=== PATIENT | female | born 1955 | race Caucasian/White ===

== ENCOUNTER → 2019-06-06 12:54 | Outpatient (CLI) | payer OTHER, SELFPAY ==
--- NOTE | ~2019-06-06 | MR_ITS ---
EXAMINATION: MR lumbar spine wo/w con EXAM DATE: 06/06/2019 14:00 INDICATION: Low back pain, right leg pain since February 2018. Scoliosis. TECHNIQUE: Multi-sequential, multiplanar MR images of the lumbar spine were obtained without contrast . Sagittal T1, T2, T2 fat saturation images. Axial T2 weighted images. Axial T1 weighted sequence. Patient was then injected with 14 mL Multihance intravenous contrast and reimaged. Postcontrast axi al and sagittal T1-weighted fat saturation sequences were obtained. There is no prior study for pearl rodríguez. FINDINGS: There is severe thoracic dextroscoliosis, thoracolumbar levoscoliosis with loss of the L2-4 vertebral body heights on there right sides, concave side of the scoliosis. Only minimal subluxation s in the AP dimension. The conus medullaris terminates at the L1/2 level and has normal signal intens ity and morphology. 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 There are some dilated l ower thoracic nerve root sleeves. There is horizontally oriented left kidney. Paraspinal soft tissue is unremarkable. There are no focal marrow signal abnormalities suspicious for malignancy or acute fr acture. There is moderate to severe disc disease at L2-3, moderate at T12-L1 and L1-2, mild at the ot her lower thoracic and lower lumbar levels. There are no areas of abnormal enhancement on the post co ntrast images. Level by level evaluation: T12-L1: There is a mild diffuse disc bulge. Facet arthropathy: Mild. Neural foraminal stenosis: No stenosis. Central canal stenosis: No stenosis. L1-L2: There is a mild to moderate diffuse disc bulge. Facet arthropathy: Mild to moderate. Neural foraminal stenosis: Probably mild left. Central canal stenosis: Mild. L2-L3: There is a mild to moderate diffuse disc bulge. Facet arthropathy: Mild to moderate. Neural foraminal stenosis: No stenosis. Central canal stenosis: Mild. L3-L4: There is a moderate diffuse disc bulge. Facet arthropathy: Moderate . Ligamentum flavum enlargement. Neural foraminal stenosis: Mild to moderate right, mild left. Central canal stenosis: Moderate. L4-L5: There is a moderate diffuse disc bulge. Facet arthropathy: Moderate. Neural foraminal stenosis: Mild to moderate left, mild right. Central canal stenosis: Moderate. L5-S1: Disc does not extend beyond the endplate margin. Facet arthropathy: Mild. Neural foraminal stenosis: No stenosis. Central canal stenosis: No stenosis. IMPRESSION: 1. Severe thoracolumbar scoliosis. 2. Up to moderate spondylosis as detailed above. Reviewed, dictated and finalized at location A. 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
[2019-06-06 13:25] LABS: Estimated Glomerular Filt Rate > 60
== END ==
PROVIDERS: Visit Provider Physician Assistant Medical
DX: M41.9 Scoliosis, unspecified (principal); R93.7 Abnormal findings on diagnostic imaging of other parts of musculoskeletal system; M47.896 Other spondylosis, lumbar region
CPT/HCPCS: 36415; 72158; A9577

== ENCOUNTER → 2019-12-26 14:48 | Outpatient (CLI) | payer OTHER, SELFPAY ==
--- NOTE | ~2019-12-26 | MM_ITS ---
EXAMINATION: MM screening [facility] BI w bang HISTORY: Screening mammogram TECHNIQUE: Craniocaudal and mediolateral oblique 3-D tomosynthesis images were obtained and synthetic 2-D images were generated. Rotated right lateral cc view. CAD analysis was submitted and interpreted . COMPARISON: 08/27/2018, 07/23/2017, 06/11/2016 bilateral digital screening mammogram examinations BREAST PARENCHYMAL COMPOSITION: The breasts are extremely dense, which lowers the sensitivity of mamm ography. FINDINGS: There is no evidence of suspicious mass, calcification, or architectural distortion to sugg est malignancy in either breast. There has been no suspicious interval change. IMPRESSION: 1. No mammographic evidence of malignancy. 2. Recommend routine screening mammography in one year. BI-RADS Category 1: Negative Reviewed, dictated and finalized at location A.
== END ==
PROVIDERS: PCP Internal Medicine; Visit Provider Obstetrics & Gynecology Gynecology
DX: Z12.31 Encounter for screening mammogram for malignant neoplasm of breast (principal)
CPT/HCPCS: 77063; 77067

== ENCOUNTER → 2021-01-15 13:11 | Outpatient (CLI) | payer MEDICARE, SELFPAY ==
--- NOTE | ~2021-01-15 | MM_ITS ---
EXAMINATION: MM screening [facility] BI w bang HISTORY: Screening TECHNIQUE: Craniocaudal and mediolateral oblique 3-D tomosynthesis images were obtained and synthetic 2-D images were generated. CAD analysis was submitted and interpreted. COMPARISON: Comparison to multiple prior studies sequentially, with oldest reviewed study dated 05/25. BREAST PARENCHYMAL COMPOSITION: The breasts are extremely dense, which lowers the sensitivity of mamm ography. FINDINGS: There is no evidence of suspicious mass, calcification, or architectural distortion to sugg est malignancy in either breast. There has been no suspicious interval change. IMPRESSION: 1. No mammographic evidence of malignancy. 2. Recommend routine screening mammography in one year. BI-RADS Category 1: Negative Reviewed, dictated and finalized at location A.
== END ==
PROVIDERS: Visit Provider Obstetrics & Gynecology Gynecology
DX: Z12.31 Encounter for screening mammogram for malignant neoplasm of breast (principal)
CPT/HCPCS: 77063; 77067

== ENCOUNTER → 2022-06-11 13:21 | Outpatient (CLI) | payer MEDICARE, SELFPAY ==
--- NOTE | ~2022-06-11 | MM_ITS ---
EXAMINATION: MM screening [facility] BI w bang HISTORY: Screening mammogram TECHNIQUE: Craniocaudal and mediolateral oblique 3-D tomosynthesis images were obtained and synthetic 2-D images were generated. CAD analysis was submitted and interpreted. COMPARISON: 01/15/2021, 12/26/2019, 08/27/2018 BREAST PARENCHYMAL COMPOSITION: The breasts are extremely dense, which lowers the sensitivity of mamm ography. FINDINGS: No suspicious mass, calcification, or architectural distortion are identified in either andrade ast to suggest malignancy. There has been no suspicious interval change. IMPRESSION: 1. No mammographic evidence of malignancy. 2. Recommend routine screening mammography in one year. BI-RADS Category 1: Negative Reviewed, dictated and finalized at location A. 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
--- NOTE | ~2022-06-11 | DEXA_ITS ---
Bone Density Report Name: NOREEN REZA Age: 66 Sex: Female Ethnicity: White Date of : 1955 Indication: postmenopausal; screening for osteoporosis; height loss; Referring Provider: BAILEE DAWSON Study: Bone densitometry was performed. Exam Date: June 11, 2022 Accession number: [id number] Bone Density: Region BMD T-score Z-score Classification AP Spine (L1, L2) 0.967 -0.1 1.8 Normal Femoral Neck (Left) 0.704 -1.3 0.4 Osteopenia Total Hip (Left) 0.882 -0.5 0.9 Normal Femoral Neck (Right) 0.706 -1.3 0.4 Osteopenia Total Hip (Right) 0.949 0.1 1.5 Normal Total Hip Mean 0.916 -0.2 1.2 Normal World Health Organization criteria for BMD impression classify patients as: Normal (T-score at or above -1.0), Osteopenia (T-score between -1.0 and -2.5), or Osteoporosis (T-score at or below -2.5). 10-year Fracture Risk(1): Major Osteoporotic Fracture 9.3% Hip Fracture 1.1% Reported Risk Factors: [place] (), Neck BMD=0.706, BMI=26.4 (1) FRAX(R) Version 3.08. Fracture probability calculated for an untreated patient. Fracture probability may be lower if the patient has received treatment. Previous Exams: Region Exam Age BMD T-score BMD Change BMD Change Date g/cm2 vs Baseline vs Previous AP Spine(L1, L2) 06/11/2022 66 0.967 -0.1 -0.039* -0.010 08/27/2018 62 0.976 0.0 -0.029* -0.003 05/25/2015 59 0.979 0.0 -0.026* -0.048* 02/11/2012 56 1.027 0.4 0.021 0.046* 02/18/2009 53 0.981 0.0 -0.025* -0.025* 11/13/2005 49 1.006 0.2 Total Hip(Left) 06/11/2022 66 0.882 -0.5 -0.082* -0.030* 08/27/2018 62 0.911 -0.3 -0.053* -0.040* 05/25/2015 59 0.951 0.1 -0.013 0.001 02/11/2012 56 0.950 0.1 -0.014 -0.012 02/18/2009 53 0.962 0.2 -0.002 -0.002 11/13/2005 49 0.964 0.2 Total Hip(Right) 06/11/2022 66 0.949 0.1 -0.075* -0.034* 08/27/2018 62 0.983 0.3 -0.041* -0.032* 05/25/2015 59 1.015 0.6 -0.009 0.030* 02/11/2012 56 0.985 0.3 -0.039* 0.040* 02/18/2009 53 0.944 0.0 -0.080* -0.080* 11/13/2005 49 1.024 0.7 *Denotes significance at 95% confidence level, LSC for AP Spine = 0.022 g/cm2, LSC for Total Hip = 0.027 g/cm2 Clinical Information Provided by Patient:
== END ==
PROVIDERS: PCP Obstetrics & Gynecology Gynecology; Visit Provider Obstetrics & Gynecology Gynecology
DX: Z12.31 Encounter for screening mammogram for malignant neoplasm of breast (principal); Z78.0 Asymptomatic menopausal state; M85.852 Other specified disorders of bone density and structure, left thigh; M85.851 Other specified disorders of bone density and structure, right thigh
CPT/HCPCS: 77063; 77067; 77080

== ENCOUNTER 2022-09-09 09:37 | Outpatient (CLI) | payer MEDICARE, SELFPAY ==
[2022-09-09 10:43] LABS: Anion Gap 2 mmol/L (8-16); Blood Urea Nitrogen 15 mg/dL (7-17); Calcium 8.4 mg/dL (8.4-10.2); Carbon Dioxide 32 mmol/L (22-30); Chloride 103 mmol/L (98-107); Estimated Glomerular Filt Rate > 60; Glucose 77 mg/dL (65-110); Potassium 3.6 mmol/L (3.4-5.0); Sodium 137 mmol/L (137-145)
== END 2022-09-09 09:38 | disposition home or self-care (01) ==
LOC: ANHSURGERY 09:43
PROVIDERS: Anesthesiology; PCP Physician Assistant Medical; Visit Provider Obstetrics & Gynecology Gynecology
DX: R60.9 Edema, unspecified (principal); Z01.818 Encounter for other preprocedural examination
CPT/HCPCS: 36415; 80048

== ENCOUNTER 2022-09-14 00:56 | Day surgery (SDC) | payer MEDICARE, SELFPAY ==
--- NOTE | 2022-09-03 14:58 | PC.NURSE ---
Report to the Outpatient Waiting Room, entrance under the green pavilion located off [facility], at time __1115 on date 09/14/22__. Planned Procedure Time: ___1315 . Time changes happen often and if your time is changed the preop area will call you the afternoon before. - You and your visitor will be asked to self-screen and do not enter if you have any COVID symptoms. - A mask is optional within the hospital at this time. Patients may have clear liquids (water, carbonated beverages, clear teas, apple juice) until 3 hours prior to surgery with a maximum of 20 ounces. - No food from midnight until time of surgery - Infants may have breast milk until 4 hours before surgery, infant formula 6 hours prior to surgery. - Children will be allowed to drink immediately following surgery. If applicable, please bring a bottle or sippy cup to assist with drinking. Juice, water, soda, and popsicles are readily available. For infants on formula, please bring formula the day of surgery. Pacifiers are allowed. Take the following medications with a SIP of water the morning of surgery: ____SERTRALINE DO NOT STOP ANY OF YOUR OTHER PRESCRIPTION MEDICATIONS PRIOR TO SURGERY ?EXCEPT THE FOLLOWING Medications to discontinue per physician ____ALL VITAMINS/SUPPLEMENTS 3 DAYS PRE OP.LAST DOSE 09/10/22 Please no make-up, nail kazakh, hairspray, perfume, deodorant, or body powder the day of surgery. No jewelry (including any body piercings) or valuables the day of surgery, leave them at home. Please take a shower or bath the night before, or the morning of, surgery with an antibacterial soap. Wear comfortable, loose fitting clothing. Children are encouraged to wear pajamas. - Jewelry must be removed prior to entering the operating room. Rings and piercings that are not removed may be cut off. - The hospital will not accept responsibility for valuables. - Please leave all valuables, including medications, at home the day of surgery. If you are going home after surgery, a licensed driver medic must drive you home. - NO public transportation without another adult if you receive anesthesia. - We recommend that an adult stay with you for 24 hours following discharge. - We also recommend that you do not drive, make important decision, drink alcoholic beverages, or take any drugs that were not prescribed by your health care provider for at least 24 hours after your discharge time. Follow any additional instructions given to you from your surgeon. If you or anyone in your household have experienced Covid symptoms in the past week, please notify your surgeon or the nurse liaison at the phone number below for possible testing. Telephone instructions given to ___PATIENT and asked if any additional questions and then verbalized understanding. Patient advised to call surgeon office or pre surgery nurse liaison [phone] if any additional questions.
[2022-09-03 15:09] VITALS: BMI 26.2
--- NOTE | 2022-09-14 09:23 | WPDHPUPDATE1 ---
History and Physical Update Update Date/Time: 09/14/22 09:23 History and Physical has been reviewed, including an updated exam of the patient. There are NO changes in the patient's condition. Risks, benefits, and alternatives have been discussed and questions answered. Patient agrees to proceed with procedure.
--- NOTE | 2022-09-14 09:23 | PM.HPGS ---
History of Present Illness History of Present Illness Consent: Risks, benefits, and alternatives have been discussed and questions answered. Patient agrees to proceed with procedure. Chief complaint: post menapausal bleeding Narrative: Maryuri Whitfield is a 66 year old female With postmenopausal bleeding. Patient has a history of polyps on several prior hysteroscopies. It was recommended to proceed with D&C hysteroscopy. Risks of infection, bleeding, perforation, possible pathology are reviewed. Patient voices understanding and agrees to proceed. Review of Systems Review of Systems: not repeated day of surgery; patient states no changes in status [facility] Past Medical History Medical History (Updated 09/14/22 @ 09:42 by Shaylee Webb MD) Allergic rhinitis Anxiety Dyslipidemia HTN (hypertension) Iron deficiency anemia Murmur, cardiac aortic calcification, last echo 08/07/21 GUANACO (obstructive sleep apnea) Thoracic scoliosis Vitamin D deficiency Surgical History Surgical History (Updated 09/14/22 @ 09:28 by Shaylee Webb MD) History of hysteroscopy 2004, 2006, 2008, 2015 all with polyps History of laparoscopy x2 for infertility; endometriosis diagnosed Family History Family History Mother Colon cancer Father Lung cancer Social History Social History (Updated 08/27/22 @ 11:22 by Jeni Kamara MA) Smoking status: Never smoker Alcohol intake: never Substance use: never Lack of Transportation: No Lack of Food: Never True Current Housing: I Have Housing Concerned About Future Housing: No Difficulty Paying Gas/Electric Bills: No Difficulty Paying for Meds: No Currently Unemployed: No Education: High School Diploma/GED Difficulty w/ Childcare or Family Care: No Living arrangements: with family Occupation/Education: retired Gender identity (if verbalized by the patient): Female Spiritual care concerns: No Meds Home Medications and Allergies Home Medications Medication Instructions Recorded Confirmed Type ascorbate calcium-bioflavonoid ER 1 tablet PO DAILY 02/05/22 09/03/22 History 1,000 mg-200 mg tab,extended release biotin 4,000 mcg BYMOUTH DAILY 02/05/22 09/03/22 History cholecalciferol (vitamin D3) 50 50 mcg PO DAILY 02/05/22 09/03/22 History mcg (2,000 unit) capsule estradiol 1 mg tablet 1 mg PO DAILY 02/05/22 09/03/22 History fexofenadine 180 mg tablet 180 mg PO DAILY 02/05/22 09/03/22 History (Yaima Allergy) fluticasone propionate 50 1 spray intranasal DAILY 02/05/22 09/03/22 History mcg/actuation nasal spray,suspension olopatadine 0.7 % eye drops 1 drp EACH EYE DAILY 02/05/22 09/03/22 History (Pataday Once Daily Relief) progesterone micronized 200 mg 200 mg PO QHS 02/05/22 09/03/22 History capsule (Prometrium) vitamin B12 500 mcg-folic acid 400 1 tablet PO DAILY 02/05/22 09/03/22 History mcg tablet sertraline 100 mg tablet 150 mg PO DAILY 05/08/22 09/03/22 History hydrochlorothiazide 25 mg tablet 25 mg PO DAILY #90 tabs 06/26/22 09/03/22 Rx famotidine 20 mg tablet 20 mg PO DAILY 09/03/22 09/03/22 History multivitamin 1 tablet PO DAILY 09/03/22 09/03/22 History Allergies Allergy/AdvReac Type Severity Reaction Status Date / Time amoxicillin [From Augmentin] AdvReac Other Verified 09/03/22 14:46 cefdinir [From Omnicef] AdvReac GI upset Verified 09/03/22 14:46 and diarrhea clavulanic acid AdvReac Other Verified 09/03/22 14:46 [From Augmentin] methylprednisolone AdvReac jitteriness Verified 09/03/22 14:46 [From Medrol] montelukast [From Singulair] AdvReac Jittery Verified 09/03/22 14:46 moxifloxacin [From Avelox] AdvReac dizziness Verified 09/03/22 14:46 Exam Const: General: healthy appearing and alert Orientation/consciousness: patient oriented x3 Resp: Effort & Inspection: normal respiratory effort GI: GI P
[2022-09-14 11:50] VITALS: BP 120/64; PULSE 70; RESP 16; TEMP 36.3; O2SAT 99
[2022-09-14] MEDS: LACTATED RINGERS 1,000 ML 30 ML IV CONT ×2 (12:05→14:10)
[2022-09-14] MEDS: ACETAMINOPHEN 500 MG TABLET 1000 MG PO (12:05)
--- NOTE | 2022-09-14 12:18 | WPDANESEPPF ---
Anes - Initial Pre Proc Eval Procedure: Operation Date: 09/14/22 13:15 Proposed Procedures p Hysteroscopy Dilation and Curettage - Shaylee Webb MD Date/Time: 09/14/22 12:18 Surgeon: Shaylee Webb MD Pre Op Diagnosis: post menapausal bleeding Patient Data Age: 66 Gender: F Height: 1.63 m Weight: 70 kg Last Vital Signs Temp 36.3 C L 09/14/22 11:50 Pulse 70 09/14/22 11:50 Resp 16 09/14/22 11:50 BP 120/64 09/14/22 11:50 Pulse Ox 99 09/14/22 11:50 O2 Del Method Room Air 09/14/22 11:50 Allergies Allergy/AdvReac Type Severity Reaction Status Date / Time cefdinir [From Omnicef] AdvReac GI upset Verified 09/03/22 14:46 and diarrhea clavulanic acid AdvReac Other Verified 09/03/22 14:46 [From Augmentin] methylprednisolone AdvReac jitteriness Verified 09/03/22 14:46 [From Medrol] montelukast [From Singulair] AdvReac Jittery Verified 09/03/22 14:46 moxifloxacin [From Avelox] AdvReac dizziness Verified 09/03/22 14:46 Home Medications Medication Instructions Recorded Confirmed Type ascorbate calcium-bioflavonoid ER 1 tablet PO DAILY 02/05/22 09/03/22 History 1,000 mg-200 mg tab,extended release biotin 4,000 mcg BYMOUTH DAILY 02/05/22 09/03/22 History cholecalciferol (vitamin D3) 50 50 mcg PO DAILY 02/05/22 09/03/22 History mcg (2,000 unit) capsule estradiol 1 mg tablet 1 mg PO DAILY 02/05/22 09/03/22 History fexofenadine 180 mg tablet 180 mg PO DAILY 02/05/22 09/03/22 History (Yaima Allergy) fluticasone propionate 50 1 spray intranasal DAILY 02/05/22 09/03/22 History mcg/actuation nasal spray,suspension olopatadine 0.7 % eye drops 1 drp EACH EYE DAILY 02/05/22 09/03/22 History (Pataday Once Daily Relief) progesterone micronized 200 mg 200 mg PO QHS 02/05/22 09/03/22 History capsule (Prometrium) vitamin B12 500 mcg-folic acid 400 1 tablet PO DAILY 02/05/22 09/03/22 History mcg tablet sertraline 100 mg tablet 150 mg PO DAILY 05/08/22 09/14/22 History hydrochlorothiazide 25 mg tablet 25 mg PO DAILY #90 tabs 06/26/22 09/03/22 Rx famotidine 20 mg tablet 20 mg PO DAILY 09/03/22 09/03/22 History multivitamin 1 tablet PO DAILY 09/03/22 09/03/22 History Patient hx anesthesia problems: none Family hx anesthesia problems: none Results Review: All pre-operative results and documents have been reviewed as part of the pre-operative evaluation. [facility] Past Medical History Medical History Allergic rhinitis Anxiety Dyslipidemia HTN (hypertension) Iron deficiency anemia Murmur, cardiac aortic calcification, last echo 08/07/21 GUANACO (obstructive sleep apnea) Thoracic scoliosis Vitamin D deficiency Surgical History Surgical History History of hysteroscopy 2005, 2007, 2009, 2016 all with polyps History of laparoscopy x2 for infertility; endometriosis diagnosed Family History Family History Mother Colon cancer Father Lung cancer Social History Social History Smoking status: Never smoker Alcohol intake: never Substance use: never Lack of Transportation: No Lack of Food: Never True Current Housing: I Have Housing Concerned About Future Housing: No Difficulty Paying Gas/Electric Bills: No Difficulty Paying for Meds: No Currently Unemployed: No Education: High School Diploma/GED Difficulty w/ Childcare or Family Care: No Living arrangements: with family Occupation/Education: retired Gender identity (if verbalized by the patient): Female Spiritual care concerns: No Anes - Eval Final PreProcedure Day of Procedure 09/14/22 12:18 Patient weight: overweight Heart: regular rate and rhythm Lungs: clear to auscultation Airway: Mallampati scale class II
[2022-09-14] MEDS: LIDOCAINE HCL 1% LOCAL INJ 10 ML VIAL INFILTRATE (12:35)
[2022-09-14 12:46] VITALS: BP 142/68; PULSE 74; RESP 12; O2SAT 100
--- NOTE | 2022-09-14 12:46 | W.PM.PROC2 ---
Procedure Note - Detailed Date of Procedure 09/14/22 Pre-op Diagnosis post menapausal bleeding Post-op Diagnosis Same Procedure Performed D&C hysteroscopy with resection of polyp Surgeon Shaylee Webb MD Anesthesia MAC and Local Findings cervical stenosis; polyp noted on the posterior left wall; the random calcifications throughout the endometrium with a very vascular cystic area anteriorly Description of Procedure The patient is taken to the operating room and placed under anesthesia in the dorsal lithotomy position. She was prepped and draped in the usual sterile fashion. [place] speculum was placed in the vagina and noted to be too wide. The Espitia speculum was opened and placed. The cervix is grasped on the anterior lip with a tenaculum and injected in each quadrant with 1% lidocaine. The external os is stenotic. The os Finders are used and the external and internal os are able to be opened. The diagnostic hysteroscope was placed with the above-stated findings. The Aveeta resection device was then placed and the polyp removed under direct visualization. The same device is used to remove the majority of the calcifications and the cystic area anteriorly. The hysteroscope was then removed and the sharp curette used to curette the endometrium until a good uterine cry is noted in all areas. All instruments were then removed. The patient was awakened from anesthesia and taken to recovery in stable condition. Sponge, needle, and instrument counts are correct per the OR staff. Estimated Blood Loss 5 Drains No Packing No Pathology Yes ( Endometrial shavings and curettings) Complications No immediate complications Condition Stable Disposition PACU
[2022-09-14 13:15] VITALS: BP 149/83; PULSE 71
[2022-09-14 13:45] VITALS: BP 145/77; PULSE 80
[2022-09-14] MEDS: fentaNYL CITRATE INJ (*CRX) 100 MCG/2 ML VIAL 25 MCG IV PUSH (13:50)
[2022-09-14] MEDS: oxyCODONE HCL (*CRX) 2.5 MG TAB IR PO (13:55)
[2022-09-14 14:15] VITALS: BP 148/68; PULSE 80
== END 2022-09-14 14:38 | disposition home or self-care (01) ==
PROVIDERS: PCP Physician Assistant Medical; Visit Provider Obstetrics & Gynecology Gynecology
PROC: 0U5B8ZZ Destruction of Endometrium, Via Natural or Artificial Opening Endoscopic (ICD-10-PCS; CPT 58563; principal; 2022-09-14 13:15)
DX: N95.0 Postmenopausal bleeding (principal); N84.0 Polyp of corpus uteri; I10 Essential (primary) hypertension; E78.5 Hyperlipidemia, unspecified; D50.9 Iron deficiency anemia, unspecified; G47.33 Obstructive sleep apnea (adult) (pediatric); E55.9 Vitamin D deficiency, unspecified; F41.9 Anxiety disorder, unspecified
CPT/HCPCS: 58558; 88305; A9270; J2250; J2405; J2704; J3010; J7120

== ENCOUNTER 2023-10-11 11:17 | Outpatient (CLI) | payer MEDICARE, SELFPAY ==
--- NOTE | ~2023-10-11 | MM_ITS ---
EXAMINATION: MM screening [facility] BI w bang HISTORY: Screening TECHNIQUE: Craniocaudal and mediolateral oblique 3-D tomosynthesis images were obtained and synthetic 2-D images were generated. CAD analysis was submitted and interpreted. COMPARISON: Comparison to multiple prior studies sequentially, with oldest reviewed study dated 12/2016. BREAST PARENCHYMAL COMPOSITION: Dense: The breasts are extremely dense, which lowers the sensitivity of mammography. FINDINGS: The right breast is stable without evidence for malignancy. There is developing asymmetry i n the upper outer quadrant of the left breast which is obscured by dense fibroglandular tissue. IMPRESSION: 1. Developing left breast asymmetries. 2. Additional mammographic views and possible breast ultrasound are recommended. BI-RADS Category 0: Incomplete: Needs additional imaging evaluation. Reviewed, dictated and finalized at location B. IMPRESSION: 1. Developing left breast asymmetries. 2. Additional mammographic views and possible breast ultrasound are recommended . BI-RADS Category 0: Incomplete: Needs additional imaging evaluation.
== END 2023-10-11 11:18 ==
LOC: MICIMG 11:18
PROVIDERS: PCP Physician Assistant Medical; Visit Provider Obstetrics & Gynecology Gynecology
DX: Z12.31 Encounter for screening mammogram for malignant neoplasm of breast (principal); R92.8 Other abnormal and inconclusive findings on diagnostic imaging of breast
CPT/HCPCS: 77063; 77067

== ENCOUNTER 2023-11-09 09:45 | Outpatient (CLI) | payer MEDICARE, SELFPAY ==
--- NOTE | ~2023-11-09 | MMUS_ITS ---
EXAMINATION: MM diagnostic [facility] LT w bang, US breast LT complete HISTORY: Follow-up left breast asymmetry TECHNIQUE: Additional 3-D tomosynthesis images of the left breast were performed and synthetic 2-D im ages were generated. CAD analysis was submitted and interpreted. High resolution complete left breast ultrasound was performed. COMPARISON: Comparison to multiple prior studies sequentially, with oldest reviewed study dated 07/23. BREAST PARENCHYMAL COMPOSITION: Dense: The breasts are extremely dense, which lowers the sensitivity of mammography. FINDINGS: MAMMOGRAPHIC FINDINGS: There are no suspicious masses, calcifications or architectural distortion in the left breast to sugg est malignancy. Evaluation for subtle mass is limited due to dense breast tissue. ULTRASOUND: Complete US of all 4 quadrants of the left breast and retroareolar region was reviewed. At 10:00, 4 c m from the nipple there is a 6 mm oval hypoechoic parallel oriented mass with posterior acoustic enha ncement and no internal vascularity. There is a thin circumscribed capsule, consistent with benign ma ss. No other discrete solid or cystic masses.. IMPRESSION: 1. No evidence for malignancy in the left breast. Benign finding. 2. Routine yearly screening mammogram and regular clinical breast examination are recommended. BI-RADS Category 2: Benign finding(s). Reviewed, dictated and finalized at location B. IMPRESSION: 1. No evidence for malignancy in the left breast. Benign finding. 2. Routine yearly screening mammogram and regular clinical breast examination a re recommended. BI-RADS Category 2: Benign finding(s).
== END 2023-11-09 09:46 ==
LOC: MICIMG 09:46
PROVIDERS: PCP Physician Assistant Medical; Visit Provider Obstetrics & Gynecology Gynecology
DX: R92.8 Other abnormal and inconclusive findings on diagnostic imaging of breast (principal)
CPT/HCPCS: 76641; 77061; 77065; G0279

== ENCOUNTER 2024-12-14 10:12 | Outpatient (CLI) | payer MEDICARE, SELFPAY ==
--- NOTE | ~2024-12-14 | MM_ITS ---
EXAMINATION: MM screening [facility] BI w bang HISTORY: Screening TECHNIQUE: Craniocaudal and mediolateral oblique 3-D tomosynthesis images were obtained and synthetic 2-D images were generated. CAD analysis was submitted and interpreted. COMPARISON: Comparison to multiple prior studies sequentially, with oldest reviewed study dated 08/27/2018. BREAST PARENCHYMAL COMPOSITION: The breasts are extremely dense, which lowers the sensitivity of mammography. FINDINGS: There is no evidence of suspicious mass, calcification, or architectural distortion to suggest malignancy in either breast. Scattered benign-appearing calcifications are present. IMPRESSION: 1. No mammographic evidence of malignancy. 2. Recommend routine screening mammography in one year. BI-RADS Category 2: Benign finding(s). Reviewed, dictated and finalized at location B.
== END 2024-12-14 10:13 | disposition home or self-care (01) ==
LOC: MICIMG 10:13
PROVIDERS: PCP Physician Assistant Medical; Visit Provider Obstetrics & Gynecology Gynecology
DX: Z12.31 Encounter for screening mammogram for malignant neoplasm of breast (principal)
CPT/HCPCS: 77063; 77067

== ENCOUNTER 2025-01-09 09:13 | Outpatient (CLI) | payer MEDICARE, SELFPAY ==
--- NOTE | ~2025-01-09 | DEXA_ITS ---
Bone Density Report Name: NOREEN REZA Age: 69 Sex: Female Ethnicity: White Date of : 1955 Indication: postmenopausal; screening for osteoporosis; height loss; Referring Provider: RODRIGUE GRAVES I. Study: Bone densitometry was performed. Exam Date: January 09, 2025 Accession number: [id number] Bone Density: Region BMD T-score Z-score Classification AP Spine(L1, L2) 0.961 -0.2 1.9 Normal Femoral Neck (Left) 0.641 -1.9 0.0 Osteopenia Total Hip (Left) 0.832 -0.9 0.7 Normal Femoral Neck (Right) 0.656 -1.7 0.1 Osteopenia Total Hip (Right) 0.820 -1.0 0.6 Normal Total Hip Mean 0.826 -1.0 0.7 Normal World Health Organization criteria for BMD impression classify patients as: Normal (T-score at or above -1.0), Osteopenia (T-score between -1.0 and -2.5), or Osteoporosis (T-score at or below -2.5). 10-year Fracture Risk(1): Major Osteoporotic Fracture 11% Hip Fracture 2.1% Reported Risk Factors: [place] (), Neck BMD=0.641, BMI=27.2 (1) FRAX(R) Version 3.08. Fracture probability calculated for an untreated patient. Fracture probability may be lower if the patient has received treatment. Previous Exams: -- Region Exam Age BMD T-score BMD Change BMD Change Date g/cm2 vs Baseline vs Previous -- AP Spine (L1-L2) 01/09/2025 69 0.961 -0.2 -4.5%* -0.6% 06/11/2022 66 0.967 -0.1 -3.9%* -1.0% 08/27/2018 62 0.976 0.0 -2.9%* -0.3% 05/25/2015 59 0.979 0.0 -2.6%* -4.6%* 02/11/2012 56 1.027 0.4 2.1% 4.7%* 02/18/2009 53 0.981 0.0 -2.4%* -2.4%* 11/13/2005 49 1.006 0.2 Total Hip(Left) 01/09/2025 69 0.832 -0.9 -13.7%* -5.6%* 06/11/2022 66 0.882 -0.5 -8.5%* -3.3%* 08/27/2018 62 0.911 -0.3 -5.5%* -4.2%* 05/25/2015 59 0.951 0.1 -1.4% 0.1% 02/11/2012 56 0.950 0.1 -1.4% -1.2% 02/18/2009 53 0.962 0.2 -0.2% -0.2% 11/13/2005 49 0.964 0.2 Total Hip(Right) 01/09/2025 69 0.820 -1.0 -19.9%* -13.6%* 06/11/2022 66 0.949 0.1 -7.3%* -3.5%* 08/27/2018 62 0.983 0.3 -4.0%* -3.1%* 05/25/2015 59 1.015 0.6 -0.9% 3.0%* 02/11/2012 56 0.985 0.3 -3.8%* 4.3%* 02/18/2009 53 0.944 0.0 -7.8%* -7.8%* 11/13/2005 49 1.024 0.7 -- *Denotes significance at 95% confidence level, LSC for AP Spine = 0.022 g/cm2, LSC for Total Hip = 0.027 g/cm2 Rate of change results reflect vertebral levels common to all scans Clinical Information Provided by Patient: Has used the following medications: HRT (i.e. estrogen/hormone therapy), Vitamin D, Calcium Patient maximum height was 68 Menopause Age: 33 No regular weight bearing exercise Onset of menses at age 10 Number of children 0 Impression: The patient has low bone mass, based on the Left Femoral Neck T-score. The patient has an estimated ten-year risk of hip fracture of 2.1% and an estimated ten-year risk of major fracture of 11%, based on the WHO FRAX algorithm. The BMD for the Total Hip(Left) decreased, changing by -5.6% since the last DXA exam. The BMD for the Total Hip(Right) decreased, changing by -13.6% since the last DXA exam. Discussion: BONE DENSITY IS LOW AT ONE OR MORE SKELETAL SITES. This patient's lowest T-score is low at one or more skeletal sites. It meets the World Health Organization's (WHO) criteria for ?low bone mass? (T-score between -1.0 and -2.5). The patient's 10-year risk of fracture as calculated by FRAX is less than the threshold where pharmacological therapy is recommended by the National Osteoporosis Foundation (NOF). However, all treatment decisions require clinical judgment and consideration of individual patient factors, including patient preferences, comorbidities, previous drug use, risk factors not captured in the FRAX model (e.g., frailty, falls, vitamin D deficiency, increased bone turnover, interval significant decline in bone density) and possible under or overestimation of fracture risk by FRAX. The patient should follow a healthful lifestyle (good nutrition with adequate calcium and vitamin D, and appropriate weight-bearing exercise). Follow-Up: Consider repeating this study in 2 years to reassess this patient's status, or sooner if there is some new clinical indication. Reported by: JAN on 01/09/2025 9:37:00 AM. Reviewed, dictated and finalized at location A.
== END 2025-01-09 09:14 | disposition home or self-care (01) ==
LOC: MICIMG 09:14
PROVIDERS: PCP Physician Assistant Medical; Visit Provider Physician Assistant Medical
DX: Z78.0 Asymptomatic menopausal state (principal); M85.852 Other specified disorders of bone density and structure, left thigh; M85.851 Other specified disorders of bone density and structure, right thigh
CPT/HCPCS: 77080